=== PATIENT | male | born 1965 | race Caucasian/White ===

== ENCOUNTER → 2017-01-23 | Outpatient (CLI) | payer BC | LOC: HEART 5 11:00 | DX: Q23.1 Congenital insufficiency of aortic valve (principal); I10 Essential (primary) hypertension; I71.2 Thoracic aortic aneurysm, without rupture | CPT/HCPCS: 93306 ==

== ENCOUNTER → 2021-02-01 | Outpatient (CLI) | payer BC | LOC: LAB 15:36 | DX: Z23 Encounter for immunization (principal); Z20.822 Contact with and (suspected) exposure to COVID-19 | CPT/HCPCS: 0011A; 91301 ==

== ENCOUNTER → 2021-07-25 | Outpatient (CLI) | payer BC | LOC: CT 11:00 | DX: Z13.9 Encounter for screening, unspecified (principal); I71.2 Thoracic aortic aneurysm, without rupture | CPT/HCPCS: 36415; 71260; 82565; 84520; Q9967 ==

== ENCOUNTER → 2021-12-17 | Outpatient (CLI) | payer BC | LOC: HEART 5 11-29 13:30 | DX: Q23.1 Congenital insufficiency of aortic valve (principal); J98.4 Other disorders of lung; I77.819 Aortic ectasia, unspecified site | CPT/HCPCS: 93306 ==